=== PATIENT | male | born 1955 | race Caucasian/White ===

== ENCOUNTER 2017-03-03 11:13 | Emergency (ER) | payer OTHER ==
[~2017-03-03] VITALS: Ht 172.7 cm; Wt 118.0 kg
[2017-03-03 11:16] VITALS: BP 157/87
[2017-03-03 12:35] LABS: BLOOD UREA NITROGEN 25 mg/dL (7-18)
== END 2017-03-03 13:03 | disposition home or self-care (01) ==
LOC: ED 13:00
DX: I87.2 Venous insufficiency (chronic) (peripheral) (principal); I10 Essential (primary) hypertension; E11.9 Type 2 diabetes mellitus without complications
CPT/HCPCS: 36415; 80048; 82040; 85025